=== PATIENT | female | born 1995 | race Caucasian/White ===

== ENCOUNTER → 2016-04-24 | Day surgery (SDC) | payer OTHER ==
[~2016-04-24] MED LIST: AMOXICILLIN875 MG PO; BENTYL20 M1 PO; FLEXERIL10 MG PO; IBUPROFEN600 MG PO; MIRALAX17 G2 PO; NAPROXEN PO; PHENERGAN25 M1 DOB; PHENTERMINE H37.5 M1 PO; PRENATAL1 TA1; PROTONIX PO; PROZAC10 M1; PROZAC40 MG DOB; VIBRYD; ZOFRAN ODT4 MG PO
--- NOTE | ~2016-04-24 | CR73 ---
[facility] A Service of [facility] & [facility] RADIOLOGY TEXT RESULTS PATIENT: FRANCESCO SHAH LOCATION: [facility] : 95 UNIT #: [id number] AGE: [address]: Robert Coronado MD SEX: F ORDER DR: [id number] [facility] [address] [place], [place] [address] [id number] O MR#: [id number] Acc #: [id number] NAME: FRANCESCO SHAH : 1995 SEX: F STUDY DATE/TIME: 04/24/2016 8:20 UNIT: [facility] ROOM: STUDY DESCRIPTION: CR Cholangiogram Operative Attending Physician: Robert Coronado Jr., M.D. Ordering Physician: Robert Coronado Jr., M.D. Primary Care Physician: Carlos Davey Aprn MEDICAL IMAGING REPORT This report is preliminary unless electronic signature is present EXAM intraoperative cholangiogram with fluoroscopy. 04/24/2016 HISTORY 21-year-old female status post laparoscopic cholecystectomy. COMPARISON Right upper quadrant abdominal ultrasound 04/01/2016. CT abdomen and pelvis with contrast 03/12/2016. FINDINGS A single spot fluoroscopic image was obtained during intraoperative cholangiogram performed by Dr. Coronado. Fluoroscopy time 11 seconds was documented by the technologist. On this single limited image, common bile duct demonstrates normal caliber without suspicious filling defects or evidence of retained stones. The opacified portion of the intrahepatic bile ducts appear unremarkable. There is flow of contrast into the adjacent duodenum. No definite contrast extravasation is seen. Please refer to the intraoperative report for additional findings and recommendations. Dictated by... Mamta Pretty M.D. THIS IS AN ELECTRONICALLY VERIFIED REPORT Mamta Pretty M.D. at 04/24/2016 11:56 AM RICARDO/jaida TD: 04/24/2016 11:38 JOB #: [id number] MEDICAL IMAGING REPORT COPY
--- NOTE | ~2016-04-24 | OR ---
Unit #: [id number] #: [id number] Patient: FRANCESCO SHAH [id number] [address] [place], [place] [address] [id number] O MR#: [id number] NAME: FRANCESCO SHAH ROOM: Date of Procedure: 04/24/2016 Admission Date: 04/24/2016 Surgeon: Robert Coronado Jr., M.D. : 1995 Attending Physician: Robert Coronado Jr., M.D. Primary Care Physician: Carlos Davey Aprn OPERATIVE REPORT INDICATIONS FOR PROCEDURE The patient is a 21-year-old white female, who has been having intermittent mid epigastric and right upper quadrant abdominal pain, compatible with biliary colic. She has been worked up and noted to have an evidence of gallstones, also was noted to have evidence of some elevated liver function tests. It was felt she could have passed common duct stone and it was felt she needed laparoscopic cholecystectomy along with intraoperative cholangiograms. The patient was brought in this time for this procedure at her request. She understands the procedure including the risks, including that of intraabdominal organ injury, common duct injury, biliary leak, and bleeding, and consents. PREOPERATIVE DIAGNOSIS Cholecystitis with cholelithiasis and possible common duct stone. POSTOPERATIVE DIAGNOSES Cholecystitis with cholelithiasis and possible common duct stone, noting no evidence of any common duct stone. The cholangiograms intraoperatively were normal. ANESTHESIA General with endotracheal intubation and 0.5% Marcaine with epinephrine locally. PROCEDURE PERFORMED Laparoscopic cholecystectomy with intraoperative cholangiograms, which were normal. DESCRIPTION OF PROCEDURE The patient was positioned in supine position, after being anesthetized and intubated, was prepped and draped in routine fashion for laparoscopic cholecystectomy. A small supraumbilical incision was made of approximately a cm in length. This was carried down to the fascia. Fascia was lifted with 2 Smita clamps and a Veress needle was introduced in the abdomen. The abdomen was then inflated with CO2 gas. A 5-mm port was introduced in the abdomen followed by the camera. There was no evidence of any injury related to the introduction of the port of the Veress needle. Brief intra-abdominal exploration was carried out. The patient was noted to have a large globular fatty liver with chronically inflamed perigallbladder. Two 5-mm ports were placed laterally and an 11-mm port just to the right of the upper midline. The gallbladder was lifted. Dissection was carried out on the triangle of Calot. There were Unit #: [id number] #: [id number] Patient: FRANCESCO SHAH some inflammatory changes along with some fibrosis making the dissection slightly difficult. The cystic duct was isolated approximately 1 to 2 mm in diameter. It was hemoclipped on the gallbladder side and cholangiocath was then placed after a small hermelinda was made in the cystic duct and cholangiograms were obtained, which were normal. The cholangiocatheter was removed and the cystic duct then occluded with 3 hemoclips and divided. Cystic artery was identified, hemoclipped x3, and divided. The cystic duct was divided approximately 1 cm from its junction with the common duct. Common duct appeared normal. The gallbladder was then removed from its bed with the hook cautery using a current of 20 and after it was released, this was placed in an EndoCatch bag and brought out through the larger port site. The port was replaced. Subhepatic space irrigated. There was no evidence of any bleeding from the gallbladder bed. The clips on cystic duct and cystic artery were intact with no evidence of any leak or bleeding. After small amount of fluid was removed with one sponge, packed intraabdominal and brought out directly. Sponge count was correct x3. CO2 was expressed from the abdomen. The fascia in the larger port site was approximated with neoClose technique and the wounds were then irrigated and injected with 0.5% Marcaine with epinephrine. After hemostasis was noted, the skin edges were approximated with stainless-steel skin clips and skin stapling device. Sterile dressings were applied externally. Estimated blood loss less than 50 mL. The patient received less than 1000 mL of crystalloid solution during the procedure. Sponges and instrument counts were correct x3. No drains used. No complications. The patient was taken to the recovery room with stable vital signs in satisfactory condition. Dictated by... Robert Coronado Jr., M.D. JMB/katharine TD: 04/25/2016 00:34 JOB #: [id number] OPERATIVE REPORT X Robert Coronado MD PROCEDURE OPERATIVE NOTE
[2016-04-24 06:40] LABS: BASOPHIL% 0.2 % (0-2.5); EOSINOPHIL# 0.1 X10e3 (0-0.7); EOSINOPHIL% 1.5 % (0.0-7.0); HEMATOCRIT 35.3 % (35.0-45.0); HEMOGLOBIN 11.7 gm/dL (12.0-16.0); LYMPHOCYTE% 33.4 % (17.0-45.0); MEAN CELL VOLUME 76.6 FL (83-96); MEAN CORPUSCULAR HEMOGLOBIN 25.3 PG (28-34); MEAN PLATELET VOLUME 8.9 FL (6.5-11.5); MONOCYTE# 0.8 X10e3 (0-1.0); MONOCYTE% 9.2 % (3.0-12.0); NEUTROPHIL# 5.1 X10e3 (1.5-7.1); NEUTROPHIL% 55.7 % (40-75); PLATELET COUNT 248 X10e3 (140-420); RED BLOOD COUNT 4.62 X10e (3.90-5.30); RED CELL DISTRIBUTION WIDTH 14.8 % (11.0-15.5); WHITE BLOOD COUNT 9.1 X10e3 (4.0-10.5)
[2016-04-24 06:41] LABS: DIFF IND NO
[2016-04-24 07:09] LABS: ALKALINE PHOSPHATASE 81 U/L (32-92); ALT (SGPT) 90 U/L (10-40); AST (SGOT) 38 U/L (10-42); BILIRUBIN,TOTAL 0.3 mg/dL (0.2-2.0); BLOOD UREA NITROGEN 15 mg/dL (9-23); BUN/CREATININE RATIO 18.75; CALCIUM SERUM 9.2 mg/dL (8.4-10.2); CARBON DIOXIDE 25 mmol/L (22-31); CHLORIDE 104 mmol/L (100-111); CREATININE SERUM 0.8 mg/dL (0.6-1.4); GLOM FILT RATE Estimated ABOVE60 mL/min (>60); GLUCOSE FASTING 100 mg/dL (70-110); POTASSIUM 3.7 mmol/L (3.5-5.1); PROTEIN TOTAL SERUM 7.7 g/dL (6.0-8.3); SODIUM 138 mmol/L (135-145)
== END | disposition home or self-care (01) ==
LOC: CSUR 05:26
PROVIDERS: Surgery
DX: K80.10 Calculus of gallbladder with chronic cholecystitis without obstruction (principal); E66.9 Obesity, unspecified; K21.9 Gastro-esophageal reflux disease without esophagitis; F41.9 Anxiety disorder, unspecified; F17.210 Nicotine dependence, cigarettes, uncomplicated; Z68.38 Body mass index [BMI] 38.0-38.9, adult; Z87.442 Personal history of urinary calculi; Z79.899 Other long term (current) drug therapy; Z98.890 Other specified postprocedural states
CPT/HCPCS: 74300; 76000; 80053; 84703; 85025; 88304; J0131; J0330; J0461; J0690; J1610; J1650; J1885; J2250; J2405; J2710; J3010

== ENCOUNTER 2016-09-01 07:26 | Emergency (ER) | payer OTHER ==
[~2016-09-01] VITALS: Ht 170.2 cm; Wt 104.3 kg
--- NOTE | ~2016-09-01 | CT2 ---
[facility]. [facility] A Service of [facility] & [facility] RADIOLOGY TEXT RESULTS PATIENT: FRANCESCO SHAH LOCATION: SED : 95 UNIT #: [id number] AGE: [address]: Alexx Jay MD SEX: F ORDER DR: [id number] [address] [address] [id number] E MR#: [id number] Acc #: [id number] NAME: FRANCESCO SHAH : 1995 SEX: F STUDY DATE/TIME: 09/01/2016 8:54 UNIT: SED ROOM: STUDY DESCRIPTION: CT Abd and Pelv W Cont Attending Physician: Alexx Jay M.D. Ordering Physician: Alexx Jay M.D. Primary Care Physician: Carlos Davey Aprn MEDICAL IMAGING REPORT This report is preliminary unless electronic signature is present. EXAM CT abdomen and pelvis 09/01/2016 INDICATION Abdominal pain and nausea that started last night. TECHNIQUE Axial images were obtained through the abdomen and pelvis following IV contrast administration. Multiplanar reformats were obtained. Comparison made with 03/12/2016. This CT examination was performed with one or more of the following radiation dose reduction techniques: automatic exposure control, adjustment of mA and/or kV according to patient size, and iterative reconstruction. FINDINGS ABDOMEN: Lung bases are clear except for some mild dependent atelectasis. Gallbladder has been removed in the interval. No biliary obstruction. Tiny nonobstructing stone is once again suspected in the right kidney. Solid organs are otherwise normal. No adenopathy or free fluid is seen. The unopacified GI tract is normal. PELVIS: Solid pelvic organs are normal. Urinary bladder is decompressed. Trace amount of free fluid is presumably physiologic. The GI tract, including the appendix, is within normal limits. IMPRESSION 1. No acute findings in the abdomen or pelvis. 2. Interval cholecystectomy. No biliary obstruction. 3. Grossly normal unopacified GI tract. 4. Trace free fluid in the cul-de-sac is probably physiologic. This is decreased in volume since the previous study. 5. Tiny nonobstructing stone once again suspected in the right kidney. STS. [facility] A Service of [facility] & [facility] RADIOLOGY TEXT RESULTS PATIENT: FRANCESCO SHAH LOCATION: [facility] : 95 UNIT #: [id number] AGE: [address]: Alexx Jay MD SEX: F ORDER DR: Dictated by... Collin Pride Jr., M.D. THIS IS AN ELECTRONICALLY VERIFIED REPORT Collin Pride Jr., M.D. at 09/01/2016 5:19 PM MAGGIE/selena TD: 09/01/2016 13:22 JOB #: [id number] MEDICAL IMAGING REPORT Page 1 of 1
[~2016-09-01 07:26] MED LIST changes: -PHENTERMINE H37.5 M1 PO
[2016-09-01] MEDS ORDERED: PHENTERMINE H37.5 M1 PO (07:35)
[2016-09-01 07:52] LABS: URINE SOURCE CLEAN CATCH
[2016-09-01 07:54] LABS: URINE APPEARANCE CLEAR; URINE BLOOD 2+ (NEG); URINE COLOR YELLOW; URINE GLUCOSE NEG (NORM); URINE KETONE TRACE (NEG); URINE LEUKOCYTE ESTERASE NEG (NEG); URINE NITRATE NEG (NEG); URINE PROTEIN 2+ (NEG); URINE SPECIFIC GRAVITY >=1.030 (1.003-1.035)
[2016-09-01 08:10] LABS: MICRO INDICATED? YES; URINE BILIRUBIN NEG (NEG)
[2016-09-01 08:11] LABS: CULTURE INDICATED? NO; URINE BACTERIA NEG (NEG); URINE WBC 0-2 /[HPF] (0-5)
[2016-09-01 08:12] LABS: URINE CRYSTALS CALCIUM OXALATE /[HPF]; URINE SQUAMOUS EPITHELIAL CELL OCCAS /[HPF]
[2016-09-01 08:19] LABS: BASOPHIL% 0.2 % (0-2.5); DIFF IND NO; EOSINOPHIL# 0.1 X10e3 (0-0.7); EOSINOPHIL% 1.4 % (0.0-7.0); HEMATOCRIT 39.8 % (35.0-45.0); HEMOGLOBIN 13.3 gm/dL (12.0-16.0); LYMPHOCYTE# 2.5 X10e3 (1.0-3.5); LYMPHOCYTE% 31.3 % (17.0-45.0); MEAN CELL VOLUME 80.8 FL (83-96); MEAN CORPUSCULAR HEMOGLOBIN 26.9 PG (28-34); MEAN CORPUSCULAR HGB CONC 33.3 g/dL (30-36); MEAN PLATELET VOLUME 8.9 FL (6.5-11.5); MONOCYTE# 0.7 X10e3 (0-1.0); MONOCYTE% 8.8 % (3.0-12.0); NEUTROPHIL# 4.6 X10e3 (1.5-7.1); NEUTROPHIL% 58.3 % (40-75); PLATELET COUNT 213 X10e3 (140-420); RED BLOOD COUNT 4.93 X10e (3.90-5.30); RED CELL DISTRIBUTION WIDTH 15.1 % (11.0-15.5); WHITE BLOOD COUNT 7.9 X10e3 (4.0-10.5)
[2016-09-01 08:35] LABS: ALBUMIN SERUM 4.4 g/dL (3.5-5.0); BILIRUBIN,TOTAL 0.7 mg/dL (0.2-2.0); CALCIUM SERUM 9.3 mg/dL (8.4-10.2); GLOM FILT RATE Estimated 80.5 mL/min (>60); POTASSIUM 3.7 mmol/L (3.5-5.1)
== END 2016-09-01 10:44 | disposition home or self-care (01) ==
LOC: SED 07:26
PROVIDERS: Emergency Medicine
DX: K59.00 Constipation, unspecified (principal); Z90.49 Acquired absence of other specified parts of digestive tract
CPT/HCPCS: 36415; 74177; 80053; 81003; 84703; 85025; 96360; 99284; Q9967

== ENCOUNTER 2016-09-03 14:36 | Emergency (ER) | payer OTHER ==
--- NOTE | ~2016-09-03 | CR4 ---
[facility] A Service of [facility] & [facility] RADIOLOGY TEXT RESULTS PATIENT: FRANCESCO SHAH LOCATION: [facility] : 95 UNIT #: [id number] AGE: [address]: Leslie Lam MD SEX: F ORDER DR: [id number] [facility] [address] [place], [place] [address] [id number] E MR#: [id number] Acc #: [id number] NAME: FRANCESCO SHAH : 1995 SEX: F STUDY DATE/TIME: 09/03/2016 17:10 UNIT: [facility] ROOM: STUDY DESCRIPTION: CR Abdomen Flat Upright or Dec Attending Physician: Leslie Lam M.D. Ordering Physician: Leslie Lam M.D. Primary Care Physician: Carlos Davey Aprn MEDICAL IMAGING REPORT This report is preliminary unless electronic signature is present EXAM Abdomen, flat and upright HISTORY Abdomen pain for 1 week. Constipation. FINDINGS Flat and upright views of the abdomen demonstrate mild gaseous distension of the transverse colon suggesting mild ileus. No free air. No dilatation of the remainder of the bowel. Surgical clips in the right upper quadrant. No bowel displacement. IMPRESSION Mild gaseous distension of the transverse colon could reflect mild ileus. Remainder of the bowel gas pattern is normal. No free air. Dictated by... Ramin Garza M.D. THIS IS AN ELECTRONICALLY VERIFIED REPORT Ramin Garza M.D. at 09/04/2016 11:02 PM DFL/psc TD: 09/04/2016 03:23 JOB #: [id number] MEDICAL IMAGING REPORT Page 1 of 1 COPY
[~2016-09-03 14:36] MED LIST changes: +PHENTERMINE H37.5 M1 PO
[2016-09-03 16:51] LABS: URINE SOURCE CLEAN CATCH
[2016-09-03 17:01] LABS: URINE APPEARANCE CLEAR; URINE BILIRUBIN NEG (NEG); URINE BLOOD NEG (NEG); URINE COLOR YELLOW; URINE GLUCOSE NEG (NEG); URINE KETONE NEG (NEG); URINE LEUKOCYTE ESTERASE 1+ (NEG); URINE NITRATE NEG (NEG); URINE PH 6.5 (5-8); URINE PROTEIN NEG (NEG); URINE SPECIFIC GRAVITY 1.018 (1.003-1.035)
[2016-09-03 17:05] LABS: CULTURE INDICATED? YES; URINE BACTERIA AUWI 1+ (NEGATIVE); URINE SQUAMOUS EPITHELIAL CELL OCC /[HPF]
== END 2016-09-03 18:42 | disposition home or self-care (01) ==
LOC: CED 14:36
PROVIDERS: Student in an Organized Health Care Education/Training Program
DX: K59.00 Constipation, unspecified (principal); R11.2 Nausea with vomiting, unspecified; F32.9 Major depressive disorder, single episode, unspecified; F41.9 Anxiety disorder, unspecified; Z79.899 Other long term (current) drug therapy
CPT/HCPCS: 74020; 81003; 84703; 87086; 99284